=== PATIENT | male | born 1975 | race American Indian/Alaskan Native ===

== ENCOUNTER 2018-12-07 16:09 | Emergency (ER) | payer MEDICARE ==
[2018-12-07 16:23] VITALS: BMI 18.8
[2018-12-07 16:25] VITALS: BP 94/62; PULSE 64; TEMP 98.6; O2SAT 97
--- NOTE | 2018-12-07 17:08 | C.PDOC ---
History Of Present Illness 43-year-old male presents to the ED requesting detox so that he can have a clean urine for admittance [facility] the [facility]. Review of prior records shows that patient was admitted in [facility] from November 30-. He was evaluated for chest pain on the first day, and then transferred to psychiatric floor for depression. Patient denies this. Patient states he spent the last two nights at [facility] for complaints of chest pain and was discharged today with Rx for Folic Acid, Statin, and Aspirin. Patient admits to using cocaine, opiates, and benzos and wants a clean toxicology. Patient states he has not been actively using since November 30, but admits to occasional use. He denies suicidal/homicidal ideation at this time. Time Seen by Provider: 12/07/18 16:46 Chief Complaint (Nursing): Substance Abuse History Per: Patient History/Exam Limitations: no limitations Onset/Duration Of Symptoms: Hrs Current Symptoms Are (Timing): Still Present Modifying Factor(s): Cocaine Associated Symptoms: denies: Suicidal Thoughts, Suicidal Plan Involuntary Hold By: None Recent travel outside of the [place]: No Additional History Per: Patient Past Medical History Reviewed: Historical Data, Nursing Documentation, Vital Signs Vital Signs: Last Vital Signs Temp 98.6 F 12/07/18 16:23 Pulse 64 12/07/18 16:23 Resp 16 12/07/18 16:23 BP 94/62 L 12/07/18 16:23 Pulse Ox 97 12/07/18 16:23 Primary Care Provider: FAMILY PROVIDER,NO - Medical History PMH: Anxiety, Bipolar Disorder, Bronchitis, Cardia Arrhythmia, Depression, Paranoia, Seizures (as a baby) Denies: Diabetes, Hepatitis, HIV, HTN, Chronic Kidney Disease, Sexually Transmitted Disease Surgical History: No Surg Hx - [facility] Procedures CLOSURE SKIN & SUBCUTANEOUS NEC (05/16/01) IMMOBILIZ/WOUND ATTN NEC (03/20/04) Family History: States: Unknown Family Hx - Social History Hx Alcohol Use: No Hx Substance Use: No - Immunization History Hx Tetanus Toxoid Vaccination: No Review Of Systems Psych: Positive for: Other (detox ). Negative for: Suicidal ideation Physical Exam - Physical Exam Appears: Non-toxic, No Acute Distress, Other (anxious ) Skin: Normal Color, Warm, Dry Head: Atraumatic, Normacephalic Eye(s): bilateral: Normal Inspection, PERRL, EOMI Oral Mucosa: Moist Neck: Supple Chest: Symmetrical, No Deformity, No Tenderness Cardiovascular: Rhythm Regular, No Murmur Respiratory: No Accessory Muscle Use Extremity: Normal ROM Neurological/Psych: No Normal Speech (pressured speech ), Normal Cognition, Other (no tremors noted ) ED Course And Treatment O2 Sat by Pulse Oximetry: 97 (on RA) Pulse Ox Interpretation: Normal Progress Note: Case discussed with egg worker, who deferred detox. Patient will be referred to outpatient rehab. Patient is provided with 23 pages of local rehab suggestions. Medical Decision Making Medical Decision Making: inpt for chest pain then psych for depression @ [place] from 11/29-12/05 then 2 nights @ [facility] [place] [place] for chest pain eval today wants clean u-tox for [employer] [facility] d/w Crisis Defer Detox local resources given Disposition Doctor Will See Patient In The: Office Counseled Patient/Family Regarding: Studies Performed, Diagnosis - Disposition Referrals: [facility] [Outside] [employer] [facility] [Outside] [facility] [Outside] [facility] [Outside] [facility] [Outside] Disposition: HOME/ ROUTINE Disposition Time: 17:07 Condition: GOOD Additional Instructions: seek outpatient resources as offered by our ED and our Crisis Evaluators Instructions: Drug Abuse and Drug Addiction (DC), Opioid Use Disorder Forms: [employer] (Greek) - Clinical Impression Clinical Impression: Polysubstance (including opioids) dependence w/o physiol dependence - PA / BLADE BALANCER / Resident Statement MD/DO has reviewed & agrees with the documentation as recorded. - Scribe Statement The provider has reviewed the documentation as recorded by the Scribe (Jade Cardoza) Provider Attestation: All medical record entries made by the Scribe were at my direction and personally dictated by me. I have reviewed the chart and agree that the record accurately reflects my personal performance of the history, physical exam, medical decision making, and the department course for this patient. I have also personally directed, reviewed, and agree with the discharge instructions and disposition.
[2018-12-07 17:43] VITALS: RESP 20
== END 2018-12-07 17:42 | disposition home or self-care (01) ==
LOC: C.ER 16:09
DX: F19.20 Other psychoactive substance dependence, uncomplicated (principal)

== ENCOUNTER 2018-12-07 18:09 | Emergency (ER) | payer MEDICARE ==
[2018-12-07 18:24] VITALS: BMI 20.3
[2018-12-07 18:27] VITALS: BP 107/64; PULSE 64; RESP 20; TEMP 63; O2SAT 97
--- NOTE | 2018-12-07 18:58 | C.PDOC ---
History Of Present Illness 43 year old male returns 2 hours after last discharge from the ER again seeking detox. Patient's story has changed from prior today. He was inpatient at [facility] for chest pain, inpatient for psych/depression from November 29-, was overnight at [facility] December 05, discharged this morning looking for a place to day. Patient was deferred detox and rehab here today, again, seeking rehab or detox, complains he used cocaine, narcotics, and benzos in the few hours after being discharged from [facility] and evaluation at [facility] but reports he has not used since then. Time Seen by Provider: 12/07/18 18:55 Chief Complaint (Nursing): Psychiatric Evaluation History Per: Patient History/Exam Limitations: no limitations Onset/Duration Of Symptoms: Hrs Current Symptoms Are (Timing): Still Present Recent travel outside of the [place]: No Past Medical History Reviewed: Historical Data, Nursing Documentation, Vital Signs Vital Signs: Last Vital Signs Temp 63 F L 12/07/18 18:24 Pulse 64 12/07/18 18:24 Resp 20 12/07/18 18:24 BP 107/64 12/07/18 18:24 Pulse Ox 97 12/07/18 18:24 Primary Care Provider: FAMILY PROVIDER,NO - Medical History PMH: Anxiety, Bipolar Disorder, Bronchitis, Cardia Arrhythmia, Depression, Paranoia, Seizures (as a baby) Denies: Diabetes, Hepatitis, HIV, HTN, Chronic Kidney Disease, Sexually Transmitted Disease - [facility] Procedures CLOSURE SKIN & SUBCUTANEOUS NEC (05/16/01) IMMOBILIZ/WOUND ATTN NEC (03/20/04) Family History: States: Unknown Family Hx - Social History Hx Alcohol Use: No Hx Substance Use: No - Immunization History Hx Tetanus Toxoid Vaccination: No Review Of Systems Constitutional: Negative for: Fever, Chills Cardiovascular: Negative for: Chest Pain, Palpitations Respiratory: Negative for: Cough, Shortness of Breath Gastrointestinal: Negative for: Nausea, Vomiting Neurological: Negative for: Weakness, Numbness Physical Exam - Physical Exam Appears: Non-toxic, Other (Black male, anxious, circumlocutious, confabulatory) Skin: Normal Color, Warm Head: Atraumatic, Normacephalic Eye(s): bilateral: Normal Inspection Oral Mucosa: Moist Chest: Symmetrical, No Tenderness Cardiovascular: Rhythm Regular Respiratory: Normal Breath Sounds, No Rales, No Rhonchi, No Wheezing Gastrointestinal/Abdominal: Soft, No Tenderness Neurological/Psych: Oriented x3, Normal Speech Gait: Steady ED Course And Treatment O2 Sat by Pulse Oximetry: 97 (Room air) Pulse Ox Interpretation: Normal Progress Note: Discussed with crisis who find no obvious detox issue, again referred with 23 pages to local rehab facilities with poor insight. Medical Decision Making Medical Decision Making: left 2 hrs ago STILL expecting detox Story has changed that he was inpt @ [place] from 11/29-12/05. Used cocaine, narcotics and benzo's upon discharge Spent @ [facility] and was d/c to street this AM (12/07) STILL no SI/HI Pt adamantly wants a place to stay/fdc/[facility] Again discharged with opt f/u Voucher for car service back to [facility] Disposition Doctor Will See Patient In The: Office Counseled Patient/Family Regarding: Studies Performed, Diagnosis - Disposition Referrals: [facility] [Outside] [facility] [Outside] [facility] [Outside] [facility] [Outside] [facility] [employer] [Outside] Disposition: HOME/ ROUTINE Disposition Time: 18:58 Condition: GOOD Additional Instructions: outpatient follow-up as outlined in BOTH our ED visits @ [facility] today Instructions: Drug Abuse and Drug Addiction (DC) Forms: [employer] [facility] (Spanish) - Clinical Impression Clinical Impression: Polysubstance abuse - Scribe Statement The provider has reviewed the documentation as recorded by the Scribe Deuce [facility] All medical record entries made by the Scribe were at my direction and personally dictated by me. I have reviewed the chart and agree that the record accurately reflects my personal performance of the history, physical exam, medical decision making, and the department course for this patient. I have also personally directed, reviewed, and agree with the discharge instructions and disposition.
== END 2018-12-07 19:10 | disposition home or self-care (01) ==
LOC: C.ER 18:09
DX: F19.10 Other psychoactive substance abuse, uncomplicated (principal)